=== PATIENT | female | born 1980 | race Caucasian/White ===

== ENCOUNTER → 2022-05-28 | Outpatient (CLI) | payer OTHER ==
--- NOTE | 2022-05-28 15:08 | CT ---
EXAMINATION TYPE: CT brain w con DATE OF EXAM: 05/28/2022 COMPARISON: None INDICATION: Malignant neoplasm of right, upper, outer quadrant of breast. DLP: 1184.9 mGycm, Automated exposure control for dose reduction was used. CONTRAST: [address] of the brain is performed utilizing 3 mm thick sections through the posterior fossa and 3 mm thick sections through the remaining calvarium. Study is performed within 24 hours of arrival to the hosp ital. No abnormal hyperdensity is present to suggest an acute intracranial hemorrhage. No mass lesion is evident. No acute infarcts are evident. Ventricles and sulci are appropriate for the patient age. Paranasal sinuses and mastoid air cells within the [id number] are clear. No abnormal enhancement is evident. No suspicious calvarial lesions are evident. IMPRESSIONS: 1. No suspicious changes to suggest metastatic disease.
--- NOTE | 2022-05-28 16:51 | CT ---
EXAMINATION TYPE: CT ChestAbdPelvis w con DATE OF EXAM: 05/28/2022 INDICATION: Maligant neoplasm of right, upper, outer quadrant of breast. COMPARISON: CT DLP: 1317.2 mGycm CONTRAST: Performed with Oral Contrast and with IV Contrast, patient injected with 70 ML mL of Isovue 300. TECHNIQUE: Axial images at 5 mm thick sections. Reconstructed images in the coronal plane. Delayed images through the kidneys. FINDINGS: CT CHEST: Right breast prosthesis is present.r There is a hypodensity within the right thyroid lobe. Additional evaluation with ultrasound is recomm ended. No suspicious lung nodules or focal infiltrates are present. No enlarged mediastinal or hilar adenopathy is evident. The ascending aorta diameter at the level of the main pulmonary artery is 3.1 cm. The main pulmonary artery diameter at the bifurcation is 2.[address] ABDOMEN: Liver: Normal Spleen: Normal Pancreas: Normal Adrenal glands: The adrenal glands are normal. Gallbladder: There are likely cholesterol stones within the gallbladder. Kidneys: No masses are evident. No hydronephrosis is present. No cysts are present. Delayed images were obtained through the kidneys, which remain unremarkable. Aorta: Normal Inferior vena cava: Normal. CT PELVIS: Loops of bowel within the abdomen and pelvis are normal. There are loops of bowel which are incom pletely distended or lack oral contrast limiting their evaluation. Fecal debris is through the redund ant sigmoid colon. Appendix: Normal as visualized. Urinary bladder: Normal. Genitourinary structures: Uterus appears unremarkable. Adnexa are normal. Osseous structures: No suspicious lytic or sclerotic lesions. IMPRESSIONS: 1. Hypodensity within the right thyroid lobe. Additional evaluation with ultrasound is recommended. 2. Cholelithiasis. 3. No suspicious change to suggest metastatic lesions.
== END | disposition home or self-care (01) ==
LOC: RADCTMAIN 12:53
PROVIDERS: ATTEND Radiology Radiation Oncology
DX: C50.411 Malignant neoplasm of upper-outer quadrant of right female breast (principal); C50.811 Malignant neoplasm of overlapping sites of right female breast; Z92.3 Personal history of irradiation; Z51.0 Encounter for antineoplastic radiation therapy; Z71.6 Tobacco abuse counseling
CPT/HCPCS: 70460; 71260; 74177; Q9967

== ENCOUNTER 2022-05-29 19:18 | Emergency (ER) | payer OTHER ==
[2022-05-29 19:35] VITALS: BP 110/76; PULSE 98; RESP 16; TEMP 97.8
--- NOTE | 2022-05-29 20:26 | ED ---
General Adult HPI - General Chief complaint: Abdominal Pain Stated complaint: Abd Pain/Back Pain/Gallstones Time Seen by Provider: 05/29/22 20:00 Source: patient, RN notes reviewed, old records reviewed Mode of arrival: ambulatory Limitations: no limitations - History of Present Illness Initial comments: 41-year-old female with history of lymphoma and breast cancer status post chemotherapy and radiation presenting for evaluation of abdominal pain. Patient states her symptoms have been constant bilateral lower abdominal pain for the past 2 months. This is been unchanged. There's been no associated vomiting. No measured fevers. No dysuria or hematuria. She has been moving her bowels. She states that her radiation oncologist has been aware of this and had ordered computed tomography scan of the chest abdomen pelvis yesterday. Patient reviewed the record and noted that she had gallstones. She was concerned that this may be the cause of her symptoms. Her pain is bilateral lower abdominal pain no upper or epigastric pain. - Related Data Previous Rx's Medication Instructions Recorded Cephalexin [Keflex] 500 mg PO TID #21 cap 05/29/22 Docusate [Colace] 100 mg PO BID #60 capsule 05/29/22 HYDROcodone/APAP 5-325MG [[place] 1 tab PO Q6HR PRN #12 tab 05/29/22 5-325] Allergies Allergy/AdvReac Type Severity Reaction Status Date / Time No Known Allergies Allergy Verified 05/29/22 19:30 Review of Systems ROS Statement: Those systems with pertinent positive or pertinent negative responses have been documented in the HPI. ROS Other: All systems not noted in ROS Statement are negative. Past Medical History Past Medical History: Cancer Additional Past Medical History / Comment(s): breast CA, lymphoma, arrhythmia History of Any Multi-Drug Resistant Organisms: MRSA Additional Past Surgical History / Comment(s): mascectomy Past Psychological History: Anxiety, Bipolar Smoking Status: Current every day smoker Past Alcohol Use History: None Reported Past Drug Use History: Marijuana General Exam Limitations: no limitations General appearance: alert, in no apparent distress Head exam: Present: atraumatic, normocephalic Eye exam: Present: normal appearance, PERRL ENT exam: Present: normal exam Neck exam: Present: normal inspection. Absent: tenderness Respiratory exam: Present: normal lung sounds bilaterally. Absent: respiratory distress, wheezes Cardiovascular Exam: Present: regular rate, normal rhythm GI/Abdominal exam: Present: soft, tenderness (Very minimal lower abdominal tenderness). Absent: distended, guarding, rebound Extremities exam: Present: normal inspection Neurological exam: Present: alert, oriented X3, CN II-XII intact. Absent: motor sensory deficit Psychiatric exam: Present: normal affect, normal mood Skin exam: Present: warm, dry, intact. Absent: cyanosis, diaphoretic Course Vital Signs 05/29/22 19:31 Temperature 97.8 F Pulse Rate 98 Respiratory 16 Rate Blood Pressure 110/76 O2 Sat by Pulse 98 Oximetry Medical Decision Making - Medical Decision Making 41-year-old female with ongoing lower abdominal pain. Recent history of lymphoma and breast cancer status post radiation and chemotherapy. Patient is well-appearing with stable vitals. There's been no change in her pain. She had an outpatient CT performed yesterday which showed a cholelithiasis and the patient thought that this might be related to her chronic pain. Her pain is not right upper quadrant or epigastric. She's had no fever or vomiting. She has no significant abdominal tenderness on exam. I did advise the patient to follow-up regarding the gallstones as well as her abdominal pain with general surgery. She's given strict return parameters. If anything should change or worsen she should present to the emergency department. Patient's urinalysis does reveal significant urinary tract infection. Patient started on antibiotics, urine culture pending. - Lab Data Lab Results 05/29/22 05/29/22 Range/Units 20:38 20:38 Urine Color Yellow Urine Appearance Turbid H (Clear) Urine pH 6.0 (5.0-8.0) Ur Specific [place] 1.025 (1.001-1.035) Urine Protein 1+ H (Negative) Urine Glucose (UA) Negative (Negative) Urine Ketones Negative (Negative) Urine Blood Trace H (Negative) Urine Nitrite Negative (Negative) Urine Bilirubin Negative (Negative) Urine Urobilinogen <2.0 (<2.0) mg/dL Ur Leukocyte Esterase Large H (Negative) Urine RBC 12 H (0-5) /hpf Urine WBC >182 H (0-5) /hpf Urine WBC Clumps Few H (None) /hpf Ur Squamous Epith Cells 50 H (0-4) /hpf Urine Bacteria Occasional H (None) /hpf Urine Mucus Few H (None) /hpf Urine HCG, Qual Not Detected (Not Detectd) Disposition Clinical Impression: Abdominal pain, Cholelithiasis, UTI (urinary tract infection) Disposition: HOME SELF-CARE Condition: Fair Instructions (If sedation given, give patient instructions): Gallstones (ED), Abdominal Pain (ED), Urinary Tract Infection in Women (ED) Prescriptions: Docusate [Colace] 100 mg PO BID #60 capsule Cephalexin [Keflex] 500 mg PO TID #21 cap HYDROcodone/APAP 5-325MG [[place] 5-325] 1 tab PO Q6HR PRN #12 tab PRN Reason: Pain Is patient prescribed a controlled substance at d/c from ED?: No Referrals: None,Stated [Primary Care Provider] - 1-2 days Brooke Gao DO [Doctor of Osteopathic Medicine] - 1-2 days Levar Holliday MD [REFERRING] - 1-2 days Time of Disposition: 21:00
[2022-05-29] MEDS ORDERED: HYDROcodone/APAP 5-325MG 1 EACH TAB PO STA (20:43)
[2022-05-29 21:13] LABS: Appearance,Urine Turbid (Clear); Bacteria,Urine Occasional /hpf; Bilirubin,Urine Negative (Negative); Blood,Urine Trace (Negative); Color,Urine Yellow; Glucose,Urine (UA) Negative (Negative); Ketones,Urine Negative (Negative); Leukocyte Esterase,Urine Large (Negative); Mucus,Urine Few /hpf; Nitrite,Urine Negative (Negative); Protein,Urine 1+ (Negative); RBC,Urine 12 /hpf (0-5); Specific Gravity,Urine 1.025 (1.001-1.035); Squamous Epithelial Cell,Urine 50 /hpf (0-4); Urobilinogen,Urine <2.0 mg/dL (<2.0); WBC,Urine >182 /hpf (0-5)
[2022-05-29] MEDS ORDERED: CEPHALEXIN 500 MG CAP PO STA (21:17)
== END 2022-05-29 21:22 | disposition home or self-care (01) ==
LOC: EC 19:18
DX: N39.0 Urinary tract infection, site not specified (principal); K80.20 Calculus of gallbladder without cholecystitis without obstruction; F17.200 Nicotine dependence, unspecified, uncomplicated
CPT/HCPCS: 81001; 81025; 87086; 99284

== ENCOUNTER 2022-09-04 16:48 | Emergency (ER) | payer OTHER ==
[2022-09-04 18:25] VITALS: TEMP 97.9
--- NOTE | 2022-09-04 18:52 | XR ---
EXAMINATION TYPE: XR chest 2V DATE OF EXAM: 09/04/2022 COMPARISON: NONE HISTORY: Right chest lump TECHNIQUE: 2 view FINDINGS: Heart and mediastinum are normal. Lungs are clear. Diaphragm is normal. Bony thorax is inta ct. There is left-sided central venous catheter with tip in the superior vena cava. IMPRESSION: No active cardiopulmonary disease. Normal heart.
[2022-09-04 19:22] LABS: Basophils # (A) 0.1 k/uL (0-0.2); Basophils % (A) 1 %; Eosinophils # (A) 0.1 k/uL (0-0.7); Eosinophils % (A) 1 %; HCT 42.2 % (34.0-46.0); HGB 14.6 gm/dL (11.4-16.0); Lymphocytes # (A) 1.8 k/uL (1.0-4.8); Lymphocytes % (A) 23 %; MCH 31.9 pg (25.0-35.0); MCHC 34.6 g/dL (31.0-37.0); MCV 92.1 fL (80.0-100.0); Mean Platelet Volume 7.6; Monocytes # (A) 0.3 k/uL (0-1.0); Monocytes % (A) 4 %; Neutrophils # (A) 5.4 k/uL (1.3-7.7); Neutrophils % (A) 70 %; Platelet Count 269 k/uL (150-450); RBC 4.58 m/uL (3.80-5.40); RDW 12.1 % (11.5-15.5); WBC 7.8 k/uL (3.8-10.6)
[2022-09-04 19:39] LABS: ALT 17 U/L (4-34); AST 31 U/L (14-36); African American GFR (CKD) >90 (>60 ml/min/1.73 sqM); Albumin 4.7 g/dL (3.5-5.0); Alkaline Phosphatase 114 U/L (38-126); Anion Gap 14 mmol/L; Blood Urea Nitrogen 11 mg/dL (7-17); Calcium 9.3 mg/dL (8.4-10.2); Carbon Dioxide 23 mmol/L (22-30); Chloride 104 mmol/L (98-107); Glucose 80 mg/dL (74-99); Non-African American GFR(CKD) 82 (>60 ml/min/1.73 sqM); Potassium 3.9 mmol/L (3.5-5.1); Sodium 141 mmol/L (137-145); Total Bilirubin 0.8 mg/dL (0.2-1.3); Total Protein 7.6 g/dL (6.3-8.2)
[2022-09-04] MEDS ORDERED: ACETAMINOPHEN TAB 500 MG TAB PO STA (21:22)
[2022-09-04] MEDS ORDERED: MORPHINE SULFATE 4 MG/ML SYRINGE IVP STA (22:13)
[2022-09-04] MEDS ORDERED: CEPHALEXIN 500 MG CAP PO STA (22:22)
[2022-09-04] MEDS ORDERED: SULFAMETHOX-TMP 800-160MG 1 EACH TAB PO STA (22:22)
[2022-09-04 22:54] VITALS: RESP 18
--- NOTE | 2022-09-04 23:03 | ED ---
Chest Pain HPI - General Chief Complaint: Chest Pain Stated Complaint: lump on breast Time Seen by Provider: 09/04/22 21:21 Source: patient Mode of arrival: ambulatory Limitations: no limitations - History of Present Illness Initial Comments: This is a 41-year-old female with past medical history of breast cancer s/p right mastectomy one year ago who presents to the emergency department with cc of lump on her breast. Patient states she had her last round of radiation and chemo [address] Lindsey. Patient states she then had a PET scan wh ich showed possible tumor in one of her lymph nodes. Patient states she has been in [place] on vacation since finishing radiation and chemo. States approximately 3 weeks ago she started to feel a painful lump in her right breast. She has not noticed any redness or other skin changes. She does have history of MRSA. Denies history of abscess. Denies fever, chills, chest pain, shortness of breath, abdominal pain, nausea, vomiting. - Related Data Previous Rx's Medication Instructions Recorded Cephalexin [Keflex] 500 mg PO TID #21 cap 05/29/22 Docusate [Colace] 100 mg PO BID #60 capsule 05/29/22 HYDROcodone/APAP 5-325MG [[place] 1 tab PO Q6HR PRN #12 tab 05/29/22 5-325] Cephalexin [Keflex] 500 mg PO Q6HR #40 cap 09/04/22 HYDROcodone/APAP 10-325MG [[place] 1 tab PO Q4HR PRN 3 Days #18 tab 09/04/22 10-325] Sulfamethox-Tmp 800-160Mg [Bactrim 1 each PO Q12HR #20 tab 09/04/22 Ds] Allergies Allergy/AdvReac Type Severity Reaction Status Date / Time No Known Allergies Allergy Verified 09/04/22 18:24 Review of Systems ROS Statement: Those systems with pertinent positive or pertinent negative responses have been documented in the HPI. ROS Other: All systems not noted in ROS Statement are negative. Past Medical History Past Medical History: Cancer Additional Past Medical History / Comment(s): breast CA, lymphoma, arrhythmia History of Any Multi-Drug Resistant Organisms: MRSA Additional Past Surgical History / Comment(s): mascectomy Past Psychological History: Anxiety, Bipolar Smoking Status: Current every day smoker Past Alcohol Use History: None Reported Past Drug Use History: Marijuana General Exam Limitations: no limitations Eye exam: Present: normal appearance, PERRL, EOMI. Absent: scleral icterus, conjunctival injection, periorbital swelling Respiratory exam: Present: normal lung sounds bilaterally, other (3 cm soft mobile nodule, very tender to palpation. no warmth or erythema). Absent: respiratory distress, wheezes, rales, rhonchi, stridor Cardiovascular Exam: Present: regular rate, normal rhythm, normal heart sounds. Absent: systolic murmur, diastolic murmur, rubs, gallop, clicks Neurological exam: Present: alert, oriented X3, CN II-XII intact Psychiatric exam: Present: normal affect, normal mood Skin exam: Present: warm, dry, intact, normal color. Absent: rash Course Vital Signs 09/04/22 09/04/22 09/04/22 18:22 22:53 23:33 Temperature 97.9 F Pulse Rate 62 65 67 Respiratory 20 18 18 Rate Blood Pressure 111/70 115/86 129/66 O2 Sat by Pulse 99 97 98 Oximetry Chest Pain MDM - MDM This is a 41-year-old female presenting with lump in her right breast. Afebrile. Right lateral breast palpation reveals a 3 cm soft mobile nodule. It is very tender. There is no warmth or erythema. Breasts ultrasound was obtained however radiology report not published. I did speak with hearing aid repair technician who specific findings on ultrasound, possible abscess versus scar tissue versus tumor. I'm not convinced this is an abscess however I will treat for possible abscess. Patient given Bactrim and Keflex in the emergency department. She will also go home with these prescriptions. I will send her home with [place] for severe pain. Patient will follow up with her oncologist and oncology surgeon as soon as possible. Return parameters discussed. Dr. Frye is my attending. Disposition Clinical Impression: History of breast cancer, Left breast lump, Breast pain, left Disposition: HOME SELF-CARE Condition: Fair Instructions (If sedation given, give patient instructions): Breast Mass (ED) Additional Instructions: Please take medication as directed. It is very important to follow-up with oncology surgeon and oncologist regarding mass in breast. Schedule an appointment with them as soon as possible. Let them know there was a nonspecific mass in breast found on ultrasound. Return to the emergency department if you experience new, concerning, or worsening symptoms. Prescriptions: Sulfamethox-Tmp 800-160Mg [Bactrim Ds] 1 each PO Q12HR #20 tab Cephalexin [Keflex] 500 mg PO Q6HR #40 cap HYDROcodone/APAP 10-325MG [[place] 10-325] 1 tab PO Q4HR PRN 3 Days #18 tab PRN Reason: Pain Is patient prescribed a controlled substance at d/c from ED?: No Referrals: None,Stated [Primary Care Provider] - 1-2 days Time of Disposition: 23:09
[2022-09-04 23:34] VITALS: BP 129/66; PULSE 67
--- NOTE | 2022-09-07 08:42 | USB ---
Reason for Exam: Clinical finding. Indicated Problems: Lump or thickening of the right side. Risk Values: Vera 5 year model risk: 0.5%. NCI Lifetime model risk: 6.5%. Findings: Tissue in area of lump appears edematous. Complex area seen measuring 3.0 x 2.1 x 0.9cm. . Impression Elongated hypoechoic area in the right breast in the area of the lump. The appearance is nonspecific. This could be scar tissue or tumor. Recommend comparison with mammogram. No fluid collection seen to suggest an abscess. Category incomplete. COMMENTS: A clinical breast exam by your physician is recommended on an annual basis and results should be correlated with mammographic findings. This exam should not preclude additional follow-up of suspicious palpable abnormalities. Results were given to the patient verbally at the time of exam. Electronically signed and approved by: Zenon Griffith M.D.
== END 2022-09-04 23:34 | disposition home or self-care (01) ==
LOC: EC 16:48
DX: N63.0 Unspecified lump in unspecified breast (principal); Z85.3 Personal history of malignant neoplasm of breast; F17.200 Nicotine dependence, unspecified, uncomplicated
CPT/HCPCS: 36415; 80053; 84484; 85025; 71046; 76642; 99285; 96374; J2270

== ENCOUNTER 2022-09-13 14:47 | Emergency (ER) | payer OTHER ==
[2022-09-13 15:29] VITALS: TEMP 98.7
[2022-09-13] MEDS ORDERED: MORPHINE SULFATE 4 MG/ML SYRINGE IV STA (17:56)
[2022-09-13] MEDS ORDERED: SODIUM CHLORIDE 0.9% 1,000 ML IV STA (17:56)
--- NOTE | 2022-09-13 17:58 | ED ---
General Adult HPI - General Chief complaint: Abdominal Pain Stated complaint: Gall stones Time Seen by Provider: 09/13/22 17:48 Source: patient Mode of arrival: ambulatory Limitations: no limitations - History of Present Illness Initial comments: Dictation was produced using [employer] dictation software. please excuse any grammatical, word or spelling errors. Chief Complaint: 41-year-old female presents emergency department for right u pper quadrant pain and breast nodule pain History of Present Illness: A 41-year-old female she has previous history of breast cancer. She was seen here Wednesday for painful breast lump in her right br east. She was prescribed antibiotics at that time however symptoms do not improve. She does have an appointment with her oncologist to evaluate her breast pain symptoms. Patient states that the main reason why she is here is because of right upper quadrant abdominal pain. Patient states she has history of gallbladder pain. She states that she sustained stones passed in her stool before. She is here for pain control. Patient states the pain is sharp and radiates to the back. Denies any fevers but does complain of some chills. The ROS documented in this emergency department record has been reviewed and confirmed by me. Those systems with pertinent positive or negative responses have been documented in the HPI. All other systems are other negative and/or noncontributory. PHYSICAL EXAM: General Impression: Alert and oriented x3, not in acute distress HEENT: Normocephalic atraumatic, extra-ocular movements intact, pupils equal and reactive to light bilaterally, mucous membranes moist. Cardiovascular: Heart regular rate and rhythm Chest: Able to complete full sentences, no retractions, no tachypnea Abdomen: abdomen soft, non-tender, non-distended, no organomegaly, negative Rios sign Musculoskeletal: Pulses present and equal in all extremities, no peripheral edema Motor: no focal deficits noted Neurological: CN II-XII grossly intact, no focal motor or sensory deficits noted Skin: Intact with no visualized rashes Psych: Normal affect and mood ED course: 41-year-old female presents to the emergency department for breast nodule pain and reported gallbladder pain. She is well-appearing at the bedside. Vital signs upon arrival are within acceptable limits. Patient is negative Rios sign. Patient does have follow-up outpatient for further evaluation of her breast lump. Laboratory evaluation obtained. CBC, coag panel, metabolic panel is unremar kable. Ultrasound the gallbladder shows cholelithiasis. No wall thickening no signs of cholecystitis. Labs do not suggest acute cholecystitis. Patient observed in emergency department for 4 hours and 60 minutes. She's reevaluated bedside at 7:10 PM found to be in stable medical condition. Patient discharged. EKG interpretation: Ventricular rate 56, suspect Miguel,. Interval 186, Q 66, QTC 429. No [place] prolongation, no QTC prolongation, no ST or T-wave changes noted. Overall, this EKG is unremarkable - Related Data Previous Rx's Medication Instructions Recorded Cephalexin [Keflex] 500 mg PO TID #21 cap 05/29/22 Docusate [Colace] 100 mg PO BID #60 capsule 05/29/22 HYDROcodone/APAP 5-325MG [[place] 1 tab PO Q6HR PRN #12 tab 05/29/22 5-325] Cephalexin [Keflex] 500 mg PO Q6HR #40 cap 09/04/22 HYDROcodone/APAP 10-325MG [[place] 1 tab PO Q4HR PRN 3 Days #18 tab 09/04/22 10-325] Sulfamethox-Tmp 800-160Mg [Bactrim 1 each PO Q12HR #20 tab 09/04/22 Ds] Allergies Allergy/AdvReac Type Severity Reaction Status Date / Time No Known Allergies Allergy Verified 09/13/22 15:28 Review of Systems ROS Statement: Those systems with pertinent positive or pertinent negative responses have been documented in the HPI. ROS Other: All systems not noted in ROS Statement are negative. Past Medical History Past Medical History: Cancer Additional Past Medical History / Comment(s): breast CA, lymphoma, arrhythmia History of Any Multi-Drug Resistant Organisms: MRSA Additional Past Surgical History / Comment(s): mascectomy Past Psychological History: Anxiety, Bipolar Smoking Status: Current every day smoker Past Alcohol Use History: None Reported Past Drug Use History: Marijuana General Exam Limitations: no limitations Course Vital Signs 09/13/22 15:26 Temperature 98.7 F Pulse Rate 80 Respiratory 20 Rate Blood Pressure 98/61 O2 Sat by Pulse 97 Oximetry Medical Decision Making - Lab Data Result diagrams: 09/13/22 18:10 09/13/22 18:10 Lab Results 09/13/22 09/13/22 09/13/22 Range/Units 18:10 18:10 18:10 WBC 7.0 (3.8-10.6) k/uL RBC 4.61 (3.80-5.40) m/uL Hgb 14.6 (11.4-16.0) gm/dL Hct 42.3 (34.0-46.0) % MCV 91.8 (80.0-100.0) fL MCH 31.7 (25.0-35.0) pg MCHC 34.6 (31.0-37.0) g/dL RDW 12.6 (11.5-15.5) % Plt Count 246 (150-450) k/uL MPV 7.8 Neutrophils % 69 % Lymphocytes % 23 % Monocytes % 4 % Eosinophils % 1 % Basophils % 1 % Neutrophils # 4.8 (1.3-7.7) k/uL Lymphocytes # 1.6 (1.0-4.8) k/uL Monocytes # 0.3 (0-1.0) k/uL Eosinophils # 0.1 (0-0.7) k/uL Basophils # 0.1 (0-0.2) k/uL PT 10.2 (9.0-12.0) sec INR 0.9 (<1.2) APTT 25.3 (22.0-30.0) sec Sodium 136 L (137-145) mmol/L Potassium 4.9 (3.5-5.1) mmol/L Chloride 102 (98-107) mmol/L Carbon Dioxide 25 (22-30) mmol/L Anion Gap 9 mmol/L BUN 12 (7-17) mg/dL Creatinine 1.00 (0.52-1.04) mg/dL Est GFR (CKD-EPI)AfAm 80 (>60 ml/min/1.73 sqM) Est GFR (CKD-EPI)NonAf 70 (>60 ml/min/1.73 sqM) Glucose 80 (74-99) mg/dL Plasma Lactic Acid [place] (0.7-2.0) mmol/L Calcium 8.9 (8.4-10.2) mg/dL Total Bilirubin 0.6 (0.2-1.3) mg/dL AST 33 (14-36) U/L ALT 20 (4-34) U/L Alkaline Phosphatase 85 (38-126) U/L Total Protein 7.3 (6.3-8.2) g/dL Albumin 4.8 (3.5-5.0) g/dL 09/13/22 Range/Units 18:10 WBC (3.8-10.6) k/uL RBC (3.80-5.40) m/uL Hgb (11.4-16.0) gm/dL Hct (34.0-46.0) % MCV (80.0-100.0) fL MCH (25.0-35.0) pg MCHC (31.0-37.0) g/dL RDW (11.5-15.5) % Plt Count (150-450) k/uL MPV Neutrophils % % Lymphocytes % % Monocytes % % Eosinophils % % Basophils % % Neutrophils # (1.3-7.7) k/uL Lymphocytes # (1.0-4.8) k/uL Monocytes # (0-1.0) k/uL Eosinophils # (0-0.7) k/uL Basophils # (0-0.2) k/uL PT (9.0-12.0) sec INR (<1.2) APTT (22.0-30.0) sec Sodium (137-145) mmol/L Potassium (3.5-5.1) mmol/L Chloride (98-107) mmol/L Carbon Dioxide (22-30) mmol/L Anion Gap mmol/L BUN (7-17) mg/dL Creatinine (0.52-1.04) mg/dL Est GFR (CKD-EPI)AfAm (>60 ml/min/1.73 sqM) Est GFR (CKD-EPI)NonAf (>60 ml/min/1.73 sqM) Glucose (74-99) mg/dL Plasma Lactic Acid [place] 0.8 (0.7-2.0) mmol/L Calcium (8.4-10.2) mg/dL Total Bilirubin (0.2-1.3) mg/dL AST (14-36) U/L ALT (4-34) U/L Alkaline Phosphatase (38-126) U/L Total Protein (6.3-8.2) g/dL Albumin (3.5-5.0) g/dL Disposition Clinical Impression: Symptomatic cholelithiasis Disposition: HOME SELF-CARE Condition: Good Instructions (If sedation given, give patient instructions): Gallstones (ED) Is patient prescribed a controlled substance at d/c from ED?: No Referrals: None,Stated [REFERRING] - 1-2 days Time of Disposition: 19:32
[2022-09-13 18:31] LABS: Albumin 4.8 g/dL (3.5-5.0); Calcium 8.9 mg/dL (8.4-10.2); Total Bilirubin 0.6 mg/dL (0.2-1.3); Total Protein 7.3 g/dL (6.3-8.2)
[2022-09-13 18:34] LABS: INR 0.9 (<1.2); Partial Thromboplastin Time 25.3 sec (22.0-30.0); Prothrombin Time 10.2 sec (9.0-12.0)
[2022-09-13 18:35] LABS: Potassium 4.9 mmol/L (3.5-5.1)
[2022-09-13 18:41] LABS: Basophils # (A) 0.1 k/uL (0-0.2); Basophils % (A) 1 %; Eosinophils # (A) 0.1 k/uL (0-0.7); Eosinophils % (A) 1 %; HCT 42.3 % (34.0-46.0); HGB 14.6 gm/dL (11.4-16.0); Lymphocytes # (A) 1.6 k/uL (1.0-4.8); Lymphocytes % (A) 23 %; MCH 31.7 pg (25.0-35.0); MCHC 34.6 g/dL (31.0-37.0); MCV 91.8 fL (80.0-100.0); Mean Platelet Volume 7.8; Monocytes # (A) 0.3 k/uL (0-1.0); Monocytes % (A) 4 %; Neutrophils # (A) 4.8 k/uL (1.3-7.7); Neutrophils % (A) 69 %; Platelet Count 246 k/uL (150-450); RBC 4.61 m/uL (3.80-5.40); RDW 12.6 % (11.5-15.5)
--- NOTE | 2022-09-13 18:58 | US ---
EXAMINATION TYPE: US abdomen limited DATE OF EXAM: 09/13/2022 COMPARISON: NONE CLINICAL HISTORY: gall bladder pain. known gb stones acting up TECHNIQUE: Multiple sonographic images of the right upper quadrant are obtained. FINDINGS: EXAM MEASUREMENTS: Liver Length: 16.6 cm Gallbladder Wall: 0.2 cm CBD: 0.7 cm Right Kidney: 10.8 x 5.0 x 4.5 cm Pancreas: wnl Liver: wnl Gallbladder: multiple large stones, with no wall thickening or gutter fluid yet Evidence for sonographic Rios's sign: yes CBD: wnl Right Kidney: wnl IMPRESSION: There is cholelithiasis. No dilated ducts. No wall thickening seen to suggest acute cholecystitis.
[2022-09-13] MEDS ORDERED: ACET/COD 300 MG/30 MG STARTER PACK 6 TAB BTL PO STA (19:32)
[2022-09-13 19:52] VITALS: BP 140/60; PULSE 68; RESP 16
== END 2022-09-13 19:52 | disposition home or self-care (01) ==
LOC: EC 14:47
DX: K80.20 Calculus of gallbladder without cholecystitis without obstruction (principal); F17.200 Nicotine dependence, unspecified, uncomplicated
CPT/HCPCS: 36415; 93005; 80053; 83605; 85025; 85610; 85730; 76705; 99284; 96374; 96361; J2270

== ENCOUNTER 2023-12-30 17:28 | Emergency (ER) | payer OTHER ==
--- NOTE | 2023-12-30 18:59 | ED ---
General Adult HPI - General Chief complaint: Skin/Abscess/Foreign Body Stated complaint: Mouth Sore Time Seen by Provider: 12/30/23 18:25 Source: patient, RN notes reviewed Mode of arrival: ambulatory Limitations: no limitations - History of Present Illness Initial comments: 43-year-old female presents to the emergency department for evaluation of sore to her right lower lip. She states that it has been there for 2-3 days. She states that she has been using [id number] cold sore cream without any improvement. She does report that she has been picking at it and states that it is getting worse instead of better. She denies fever, chills. She denies discharge from the area. Denies any crusting. - Related Data Home Medications Medication Instructions Recorded Confirmed Sertraline [Zoloft] 25 mg PO DAILY 10/12/22 01/25/23 Previous Rx's Medication Instructions Recorded Acyclovir [Zovirax] 400 mg PO 5XD #25 tab 12/30/23 Allergies Allergy/AdvReac Type Severity Reaction Status Date / Time No Known Allergies Allergy Verified 12/30/23 18:13 Review of Systems ROS Statement: Those systems with pertinent positive or pertinent negative responses have been documented in the HPI. ROS Other: All systems not noted in ROS Statement are negative. Past Medical History Past Medical History: Cancer, GERD/Reflux Additional Past Medical History / Comment(s): RT breast CA-CHEMO AND RADIATION. lymphoma, arrhythmia. GALLSTONES. 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 port placed Past Anesthesia/Blood Transfusion Reactions: No Reported Reaction Past Psychological History: Anxiety, Bipolar Smoking Status: Current every day smoker Past Alcohol Use History: Occasional Past Drug Use History: Marijuana - Past Family History Mother Family Medical History: Cancer Additional Family Medical History / Comment(s): SKIN General Exam Limitations: no limitations General appearance: alert, in no apparent distress Head exam: Present: atraumatic, normocephalic, normal inspection Eye exam: Present: normal appearance, PERRL, EOMI. Absent: scleral icterus, conjunctival injection, periorbital swelling ENT exam: Present: mucous membranes moist, other (vesicles to right lower lip ) Neck exam: Present: normal inspection. Absent: tenderness, meningismus, lymphadenopathy Respiratory exam: Present: normal lung sounds bilaterally. Absent: respiratory distress, wheezes, rales, rhonchi, stridor Cardiovascular Exam: Present: regular rate, normal rhythm, normal heart sounds. Absent: systolic murmur, diastolic murmur, rubs, gallop, clicks Extremities exam: Present: normal inspection, full ROM, normal capillary refill. Absent: tenderness, pedal edema, joint swelling, calf tenderness Back exam: Present: normal inspection Neurological exam: Present: alert, oriented X3 Psychiatric exam: Present: normal affect, normal mood Skin exam: Present: warm, dry, normal color. Absent: rash Course Vital Signs 12/30/23 12/30/23 18:09 19:42 Temperature 98.2 F 98.1 F Pulse Rate 79 77 Respiratory 16 18 Rate Blood Pressure 125/73 112/63 O2 Sat by Pulse 100 99 Oximetry Medical Decision Making - Medical Decision Making Was pt. sent in by a medical professional or institution ([facility], [employer], urgent care, hospital, or [place] [facility] facility...) When possible be specific @ -No Did you speak to anyone other than the patient for history (EMS, parent, family, police, friend...)? What history was obtained from this source @ -No Did you review nursing and triage notes (agree or disagree)? Why? @ -I reviewed and agree with nursing and triage notes Were old charts reviewed (outside hosp., previous admission, EMS record, old EKG, old radiological studies, urgent care reports/EKG's, [place] [facility] facility records)? Report findings @ -No old charts were reviewed Differential Diagnosis (chest pain, altered mental status, abdominal pain women, abdominal pain men, vaginal bleeding, weakness, fever, dyspnea, syncope, headache, dizziness, GI bleed, back pain, seizure, CVA, palpatations, mental health, musculoskeletal)? @ -Cold sore, impetigo, this list is not all inclusive EKG interpreted by me (3pts min.). @ -None X-rays interpreted by me (1pt min.). @ -None done CT interpreted by me (1pt min.). @ -None done U/S interpreted by me (1pt. min.). @ -None done What testing was considered but not performed or refused? (CT, X-rays, U/S, labs)? Why? @ -None What meds were considered but not given or refused? Why? @ -None Did you discuss the management of the patient with other professionals (professionals i.e. , PA, [employer], lab, RT, psych nurse, aids social worker, event planner, teacher, chief medical officer, case advocate)? Give summary @ -No Was smoking cessation discussed for >3mins.? @ -No Was critical care preformed (if so, how long)? @ -No Were there social determinants of health that impacted care today? How? (Homelessness, low income, unemployed, alcoholism, drug addiction, transportation, low edu. Level, literacy, decrease access to med. care, senior living, rehab)? @ -No Was there de-escalation of care discussed even if they declined (Discuss DNR or withdrawal of care, Hospice)? DNR status @ -No What co-morbidities impacted this encounter? (DM, HTN, Smoking, COPD, CAD, Cancer, CVA, ARF, Chemo, Hep., AIDS, mental health diagnosis, sleep apnea, morbid obesity)? @ -None Was patient admitted / discharged? Hospital course, mention meds given and route, prescriptions, significant lab abnormalities, going to OR and other pertinent info. @ -Discharged. Patient presented to the emergency department for evaluation of right lower lip sore. Patient has been putting on vooq-foc-rfcqafh cold sore topical medications for this. Patient will be started on antiviral medications and also topical antibiotics. Patient seen agreeable with discharge plan. Patient stable at time of discharge. Undiagnosed new problem with uncertain prognosis? @ -No Drug Therapy requiring intensive monitoring for toxicity (Heparin, Nitro, Insulin, Cardizem)? @ -No Were any procedures done? @ -No Diagnosis/symptom? @ -Cold sore Acute, or Chronic, or Acute on Chronic? @ -acute Uncomplicated (without systemic symptoms) or Complicated (systemic symptoms)? @ -uncomplicated Side effects of treatment? @ -No Exacerbation, Progression, or Severe Exacerbation? @ -No Poses a threat to life or bodily function? How? (Chest pain, [place], [place], pneumonia, PE, COPD, DKA, ARF, appy, cholecystitis, CVA, Diverticulitis, Homicidal, Suicidal, threat to staff... and all critical care pts) @ -No Disposition Clinical Impression: Cold sore Disposition: HOME SELF-CARE Condition: Stable Additional Instructions: Please utilize ointment three times daily for 5-7 days. Follow up with your PCP. Return to the emergency department for new or worsening symptoms. Prescriptions: Acyclovir [Zovirax] 400 mg PO 5XD #25 tab Is patient prescribed a controlled substance at d/c from ED?: No Referrals: None,Stated [Primary Care Provider] - 1-2 days
[2023-12-30] MEDS: MUPIROCIN 2% OINT 22 GM TUBE TOPICAL STA (19:44)
[2023-12-30 19:47] VITALS: BP 112/63; PULSE 77; RESP 18; TEMP 98.1
== END 2023-12-30 19:43 | disposition home or self-care (01) ==
LOC: EC 17:28
DX: B00.1 Herpesviral vesicular dermatitis (principal); F41.9 Anxiety disorder, unspecified; F31.9 Bipolar disorder, unspecified; F17.200 Nicotine dependence, unspecified, uncomplicated; F12.90 Cannabis use, unspecified, uncomplicated; Z79.899 Other long term (current) drug therapy
CPT/HCPCS: 99282

== ENCOUNTER 2024-01-07 14:48 | Emergency (ER) | payer OTHER ==
--- NOTE | 2024-01-07 14:52 | ED ---
Psych HPI - General Source: patient, RN notes reviewed Mode of arrival: ambulatory Limitations: no limitations - History of Present Illness MD Complaint: suicidal ideation <Roberta Johnson - Last Filed: 01/07/24 14:59> - General Source: RN notes reviewed, old records reviewed Mode of arrival: ambulatory Limitations: no limitations <Alejandro Adame - Last Filed: 01/16/24 18:26> - General Chief Complaint: Psychiatric Symptoms Stated Complaint: mental health Time Seen by Provider: 01/07/24 14:50 - History of Present Illness Initial Comments: This is a 43-year-old female who presents to the emergency department for psychiatric evaluation. Patient currently crying and inconsolable on exam. States that she walked here from her house to get help. She continues to state "I don't want to be here anymore". (Roberta Johnson) - Related Data Home Medications Medication Instructions Recorded Confirmed No Known Home Medications 01/07/24 01/07/24 Allergies Allergy/AdvReac Type Severity Reaction Status Date / Time No Known Allergies Allergy Verified 01/07/24 16:12 Review of Systems ROS Other: All systems not noted in ROS Statement are negative. <Roberta Johnson - Last Filed: 01/07/24 14:59> ROS Other: All systems not noted in ROS Statement are negative. <Alejandro Adame - Last Filed: 01/16/24 18:26> ROS Statement: Those systems with pertinent positive or pertinent negative responses have been documented in the HPI. Past Medical History Past Medical History: Cancer, GERD/Reflux Additional Past Medical History / Comment(s): RT breast CA-CHEMO AND RADIATION. lymphoma, arrhythmia. GALLSTONES. 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 port placed Past Anesthesia/Blood Transfusion Reactions: No Reported Reaction Past Psychological History: Anxiety, Bipolar Smoking Status: Current every day smoker Past Alcohol Use History: Occasional Past Drug Use History: Marijuana - Past Family History Mother Family Medical History: Cancer Additional Family Medical History / Comment(s): SKIN <Roberta Johnson - Last Filed: 01/07/24 14:59> General Exam <Roberta Johnson - Last Filed: 01/07/24 14:59> General appearance: alert, in no apparent distress Head exam: Present: atraumatic, normocephalic, normal inspection Eye exam: Present: normal appearance, PERRL, EOMI. Absent: scleral icterus, conjunctival injection, periorbital swelling ENT exam: Present: normal exam, mucous membranes moist Neck exam: Present: normal inspection. Absent: tenderness, meningismus, lymphadenopathy Respiratory exam: Present: normal lung sounds bilaterally. Absent: respiratory distress, wheezes, rales, rhonchi, stridor Cardiovascular Exam: Present: regular rate, normal rhythm, normal heart sounds. Absent: systolic murmur, diastolic murmur, rubs, gallop, clicks GI/Abdominal exam: Present: soft, normal bowel sounds. Absent: distended, tenderness, guarding, rebound, rigid Extremities exam: Present: normal inspection, full ROM, normal capillary refill. Absent: tenderness, pedal edema, joint swelling, calf tenderness Back exam: Present: normal inspection Neurological exam: Present: alert, oriented X3, CN II-XII intact Psychiatric exam: Present: normal affect, normal mood Skin exam: Present: warm, dry, intact, normal color. Absent: rash <Alejandro Adame - Last Filed: 01/16/24 18:26> - General Exam Comments Initial Comments: Visual Physical Exam Vital signs reviewed General: Inconsolable Head: Normocephalic, atraumatic Eyes: PERRLA, EOMI ENT: Airway patent Chest: Nonlabored breathing Skin: No visual rash, normal skin tone Neuro: Alert and oriented 3 Musculoskeletal: No gross abnormalities (Roberta Johnson) Course <Alejandro Adame - Last Filed: 01/16/24 18:26> Vital Signs 01/07/24 01/07/24 14:59 21:32 Temperature 98.8 F Pulse Rate 108 H 74 Respiratory 20 17 Rate Blood Pressure 138/77 O2 Sat by Pulse 98 98 Oximetry - Reevaluation(s) Reevaluation #1: Medical records reviewed (Alejandro Adame) Reevaluation #2: Medically clear for psychiatric evaluation (Alejandro Adame) Medical Decision Making <Roberta Johnson - Last Filed: 01/07/24 14:59> <Alejandro Adame - Last Filed: 01/16/24 18:26> - Medical Decision Making I performed the QuickNote portion of this chart. Signed Roberta Johnson PA-C. (Robetra Johnson) 43 female will be admitted discharged home after seen evaluated by psychiatry for psychiatric evaluation and management (Alejandro Adame) Disposition <Roberta Johnson - Last Filed: 01/07/24 14:59> Is patient prescribed a controlled substance at d/c from ED?: No <Alejandro Adame - Last Filed: 01/16/24 18:26> Clinical Impression: Acute anxiety, Depression, Adjustment reaction of adult life Disposition: HOME SELF-CARE Condition: Fair Instructions (If sedation given, give patient instructions): Depression (ED) Referrals: None,Stated [Primary Care Provider] - 1-2 days
[2024-01-07 15:07] VITALS: TEMP 98.8
[2024-01-07] MEDS: IBUPROFEN 800 MG TAB PO STA (21:26)
[2024-01-07] MEDS: LORazepam 1 MG TAB PO STA (21:26)
[2024-01-07] MEDS: PROCHLORPERAZINE 10 MG TAB PO STA (21:26)
[2024-01-07 21:41] VITALS: BP 138/77; PULSE 74; RESP 17
== END 2024-01-07 21:45 | disposition home or self-care (01) ==
LOC: EC 14:48
DX: F41.9 Anxiety disorder, unspecified (principal); F32.A Depression, unspecified; F43.20 Adjustment disorder, unspecified; F17.200 Nicotine dependence, unspecified, uncomplicated; F12.90 Cannabis use, unspecified, uncomplicated; Z86.59 Personal history of other mental and behavioral disorders
CPT/HCPCS: 99285; S0183